=== PATIENT | female | born 1985 ===

== ENCOUNTER 2019-12-05 13:45 | Outpatient (CLI) | payer OTHER ==
[~2019-12-05] VITALS: Ht 157.5 cm; Wt 47.6 kg
--- NOTE | 2019-12-06 00:14 | Consultation ---
DATE OF CONSULTATION: 12/05/2019 CONSULTING PHYSICIAN: Jorgito Cobb MD CHIEF COMPLAINT: Abnormal liver function tests and celiac disease. HISTORY OF PRESENT ILLNESS: This is a 34-year-old female, diagnosed for celiac five years ago, currently based on stool studies, was referred to us for evaluation of abnormal liver function tests. PAST MEDICAL HISTORY: 1. Celiac disease. 2. Abnormal liver function tests. 3. Asthma. PAST SURGICAL HISTORY: None. MEDICATIONS: None. FAMILY HISTORY: Mother had breast cancer at age 50. SOCIAL HISTORY: The patient occasionally drinks alcohol, otherwise, no any other. ALLERGIES: No known allergies. REVIEW OF SYSTEMS: A 10-point review of systems was performed and pertinent positives in HPI. PHYSICAL EXAMINATION: GENERAL: A well-developed female, in no acute distress. HEENT: Normocephalic and atraumatic. Sclerae anicteric. NECK: Supple. No evidence of obvious lymphadenopathy. CARDIOVASCULAR: Regular rate and rhythm. Plus S1, S2. LUNGS: Decreased breath sounds bilaterally. ABDOMEN: Soft, nontender. No rebound. No peritoneal sign. EXTREMITIES: No cyanosis, no clubbing, no edema. ASSESSMENT: This 34-year-old female with abnormal liver function tests and history of celiac disease. PLAN: Apparently, the patient was not following the celiac diet, possibly that is why she had abnormal liver function tests. The patient was told to stay on a strict gluten free celiac diet, have another blood work done in December, which is already scheduled. If the liver enzymes are still high, come back and we want to do an evaluation at that time. Jorgito Cobb M.D. DR: Sara JOB#: [id number] CC:
== END 2019-12-05 15:45 | disposition home or self-care (01) ==
LOC: PAN 13:45
DX: R94.5 Abnormal results of liver function studies (principal); K90.0 Celiac disease
CPT/HCPCS: G0463